=== PATIENT | male | born 1990 | race Caucasian/White ===

== ENCOUNTER → 2023-02-28 15:09 | Outpatient (CLI) | payer OTHER, SELFPAY ==
--- NOTE | ~2023-02-28 | XR_ITS ---
EXAM: XR knee RT 3V DATE: 02/28/2023 15:41 HISTORY: PAIN IN RIGHT KNEE . COMPARISON: None available. FINDINGS: Normal mineralization. No fracture or dislocation. No lytic or blastic lesion. Joint space s are maintained. No erosion or periosteal change. Soft tissues within normal limits. Small volume megan int fluid. IMPRESSION: No acute osseous finding in the right knee. Reviewed, dictated and finalized at location K. [facility]
== END ==
PROVIDERS: PCP Internal Medicine; Visit Provider Internal Medicine
DX: M25.561 Pain in right knee (principal)
CPT/HCPCS: 73562